=== PATIENT | female | born 1970 | race African-American/Black ===

== ENCOUNTER → 2017-12-07 12:34 | Outpatient (POV) | payer MEDICARE, MEDICAID, SELFPAY ==
[2017-12-07 13:04] VITALS: BP 142/97; PULSE 93; RESP 20; O2SAT 95; BMI 38.7
--- NOTE | 2017-12-07 13:48 | HMH.PAINSOAP ---
[facility] Pain Management SOAP Note Subjective:: Patient is a pleasant 47-year-old female who we have been treating for chronic low back pain secondary to degenerative disc disease of the lumbar spine and lumbar radiculopathy. Patient has majority of her pain in her low back and her left hip and leg. Patient describes her pain is constant, dull, aching. Patient states that her left hip pain can radiate down into her knee and past. Patient has no real interested in injective therapy at this time. Patient has been to multiple surgeons and is determined not to be a candidate for surgery. Patient is currently being managed on Percocet 10 mg 1 p.o. 4 times daily. Patient has tried gabapentin in the past however she had side effects to it. Patients current medication regimen decreases her pain 60-70%. Patient Nicko #[id number] reviewed and appropriate. Patient's drug screen appropriate in the past. She is currently still looking into surgical options. ROS General: no recent weight change, no fever, no sleep disturbances Respiratory: no cough, no shortness of air, no recurring pulmonary infections Cardiovascular/Peripheral Vascular: No chest pain, No palpitations, no edema, no shortness of breath. Gastrointestinal: no incontinence, normal bowel movements reported Genitourinary: no incontinence Musculoskeletal: Back pain, left hip and leg leg pain. Psychiatric: normal mood/ affect, Neurological: [denies weakness in extremities], [denies balance issues] Objective:: Physical Exam General: Alert and oriented x3, no acute distress, pleasant and cooperative, [on room air] Lungs: Resps E/U, Symmetrical chest expansion, Eyes: PERRL Musculoskeletal: Flexion and extension of lumbar spine somewhat guarded secondary to pain, deep tendon reflexes normal, strength in upper and lower extremities [5/5], [abnormal gait noted] Neurological: speech clear, physical chemist equal, no gross sensory deficits Assessment:: Degenerative disc disease of the lumbar spine, lumbar radiculopathy, left hip pain, fibromyalgia Plan:: We will plan on refilling this patient's medication Percocet 10 mg 1 p.o. 4 times daily. We will give her 2 prescriptions. Both her Nicko and urine drug screen have been reviewed. Dr. Morales has reviewed this chart and agrees with this plan of care. Patient has had side effects to her gabapentin. I will try to get Lyrica 75 mg 1 p.o. twice daily approved for her. I believe that this would be very advantageous for her because of her fibromyalgia symptoms. Patient has tried and failed gabapentin, amitriptyline, Cymbalta. Patient has tried and failed physical therapy along with massage therapy. Patient has been prescribed a controlled substance after being counseled on the medication, medication safety, and possible side effects. NICKO report has been obtained and reviewed prior to prescription and found to be appropriate. Opioid contract was reviewed and signed by the patient, and that they have agreed to all of the terms set forth by our compliance program. This note was dictated using voice recognition software may contain errors or omissions
--- NOTE | 2017-12-07 13:53 | P.CONS_ITS ---
[facility] Pain Management SOAP Note Subjective:: Patient is a pleasant 47-year-old female who we have been treating for chronic low back pain secondary to degenerative disc disease of the lumbar spine and lumbar radiculopathy. Patient has majority of her pain in her low back and her left hip and leg. Patient describes her pain is constant, dull, aching. Patient states that her left hip pain can radiate down into her knee and past. Patient has no real interested in injective therapy at this time. Patient has been to multiple surgeons and is determined not to be a candidate for surgery. Patient is currently being managed on Percocet 10 mg 1 p.o. 4 times daily. Patient has tried gabapentin in the past however she had side effects to it. Patients current medication regimen decreases her pain 60-70%. Patient Nicko # [phone] reviewed and appropriate. Patient's drug screen appropriate in the past. She is currently still looking into surgical options. ROS General: no recent weight change, no fever, no sleep disturbances Respiratory: no cough, no shortness of air, no recurring pulmonary infections Cardiovascular/Peripheral Vascular: No chest pain, No palpitations, no edema, no shortness of breath. Gastrointestinal: no incontinence, normal bowel movements reported Genitourinary: no incontinence Musculoskeletal: Back pain, left hip and leg leg pain. Psychiatric: normal mood/ affect, Neurological: [denies weakness in extremities], [denies balance issues] Objective:: Physical Exam General: Alert and oriented x3, no acute distress, pleasant and cooperative, [ on room air] Lungs: Resps E/U, Symmetrical chest expansion, Eyes: PERRL Musculoskeletal: Flexion and extension of lumbar spine somewhat guarded secondary to pain, deep tendon reflexes normal, strength in upper and lower extremities [5/5], [abnormal gait noted] Neurological: speech clear, machine finisher equal, no gross sensory deficits Assessment:: Degenerative disc disease of the lumbar spine, lumbar radiculopathy, left hip pain, fibromyalgia Plan:: We will plan on refilling this patient's medication Percocet 10 mg 1 p.o. 4 times daily. We will give her 2 prescriptions. Both her Nicko and urine drug screen have been reviewed. Dr. Morales has reviewed this chart and agrees with this plan of care. Patient has had side effects to her gabapentin. I will try to get Lyrica 75 mg 1 p.o. twice daily approved for her. I believe that this would be very advantageous for her because of her fibromyalgia symptoms. Patient has tried and failed gabapentin, amitriptyline, Cymbalta. Patient has tried and failed physical therapy along with massage therapy. Patient has been prescribed a controlled substance after being counseled on the medication, medication safety, and possible side effects. NICKO report has been obtained and reviewed prior to prescription and found to be appropriate. Opioid contract was reviewed and signed by the patient, and that they have agreed to all of the terms set forth by our compliance program. This note was dictated using voice recognition software may contain errors or omissions
[2017-12-07 15:09] LABS: Amphetamine/Metha Screen,Urine Negative ng/mL (<1000); Barbiturates Screen,Urine Negative ng/mL (<200); Benzodiazepines Screen,Urine Negative ng/mL (200); Cannabinoid Screen,Urine Negative ng/mL (<50); Cocaine Screen,Urine Negative ng/g (<300); Methadone Screen,Urine Negative ng/mL (<300); Opiate Screen,Urine Positive ng/mL (<300); Phencyclidine Screen,Urine Negative ng/mL (<25)
--- NOTE | 2017-12-07 16:52 | PC.PHONENOTE ---
called in RX for Lyrica 75mg BID with 2 refills to [facility] in [place]
[2017-12-11 20:12] LABS: Oxycodone (GC/MS) 1560 ng/mL (Cutoff=100)
[2017-12-12 18:33] LABS: Opiates Negative (Cutoff=100); Oxymorphone (GC/MS) 1470 ng/mL (Cutoff=100)
== END ==
PROVIDERS: Family Provider Nurse Practitioner; PCP Nurse Practitioner; Visit Provider Clinical Nurse Specialist Family Health
DX: M54.16 Radiculopathy, lumbar region (principal); Z79.899 Other long term (current) drug therapy
CPT/HCPCS: 99212; 80305; 80361; 80365; G0480

== ENCOUNTER → 2018-03-08 12:35 | Outpatient (POV) | payer MEDICARE, MEDICAID, SELFPAY ==
[2018-03-08 13:11] VITALS: BP 151/100; PULSE 78; RESP 18; O2SAT 98; BMI 41.1
--- NOTE | 2018-03-08 15:28 | HMH.PAINSOAP ---
[facility] Pain Management SOAP Note Subjective:: Patient is a pleasant 48-year-old white female who we are treating for chronic low back pain secondary to degenerative disc disease of the lumbar spine and lumbar radiculopathy. Patient states the majority of her pain is in her low back and her left hip and leg. Patient states that her pain is constant and aching. Patient has been on Lyrica however she does not like the way it makes her feel. Patient will be discontinuing Lyrica. Patient's tried and failed gabapentin and amitriptyline and Cymbalta. Patient is currently being medically managed on Percocet 10 mg 1 p.o. 4 times daily. Patient is asking for an increase in medication today. I discussed with her that she was on the highest dose we would put her on. Patient states it does decrease her pain up to 70%. Patient Kaspar #[id number] reviewed. Patient is interested in also getting a Lidoderm patch. Patient's UDS has been appropriate in the past. Patient and I discussed neuromodulation such as nerve stimulation and intrathecal pain pump. Patient has some concerns about that because she has a fear of injections. ROS General: no recent weight change, no fever, no sleep disturbances Respiratory: no cough, no shortness of air, no recurring pulmonary infections Cardiovascular/Peripheral Vascular: No chest pain, No palpitations, no edema, no shortness of breath. Gastrointestinal: no incontinence, normal bowel movements reported Genitourinary: no incontinence Musculoskeletal: Back pain, left hip pain, left leg pain Psychiatric: normal mood/ affect Neurological: [denies weakness in extremities], [denies balance issues] Objective:: Physical Exam General: Alert and oriented x3, no acute distress, pleasant and cooperative, [on room air] Lungs: Resps E/U, Symmetrical chest expansion, Eyes: PERRL Musculoskeletal: Flexion and extension of lumbar spine somewhat guarded secondary to pain, deep tendon reflexes normal, strength in upper and lower extremities [5/5], [abnormal gait noted] Neurological: speech clear, certified financial planner equal, no gross sensory deficits Assessment:: Degenerative disc disease of the lumbar spine with lumbar radiculopathy, left hip pain, fibromyalgia Plan:: We will refill the patient's medication Percocet 10 mg 1 p.o. 4 times daily. We will give HER-2 months worth of prescriptions and follow-up with her in 2 months. Both her Nicko and urine drug screens have been reviewed. Dr. Morales has reviewed this chart. Patient will discontinue her Lyrica. Patient was given information on neuromodulation both neuro stimulation and intrathecal pain therapy. Patient and I had a brief discussion about this and we will readdress it when she returns in 2 months. Patient has been prescribed a controlled substance after being counseled on the medication, medication safety, and possible side effects. NICKO report has been obtained and reviewed prior to prescription and found to be appropriate. Opioid contract was reviewed and signed by the patient, and that they have agreed to all of the terms set forth by our compliance program. This note was dictated using voice recognition software and may contain errors or omissions
--- NOTE | 2018-03-08 15:32 | P.CONS_ITS ---
[facility] Pain Management SOAP Note Subjective:: Patient is a pleasant 48-year-old white female who we are treating for chronic low back pain secondary to degenerative disc disease of the lumbar spine and lumbar radiculopathy. Patient states the majority of her pain is in her low back and her left hip and leg. Patient states that her pain is constant and aching. Patient has been on Lyrica however she does not like the way it makes her feel. Patient will be discontinuing Lyrica. Patient's tried and failed gabapentin and amitriptyline and Cymbalta. Patient is currently being medically managed on Percocet 10 mg 1 p.o. 4 times daily. Patient is asking for an increase in medication today. I discussed with her that she was on the highest dose we would put her on. Patient states it does decrease her pain up to 70%. Patient Kaspar #[id number] reviewed. Patient is interested in also getting a Lidoderm patch. Patient's UDS has been appropriate in the past. Patient and I discussed neuromodulation such as nerve stimulation and intrathecal pain pump. Patient has some concerns about that because she has a fear of injections. ROS General: no recent weight change, no fever, no sleep disturbances Respiratory: no cough, no shortness of air, no recurring pulmonary infections Cardiovascular/Peripheral Vascular: No chest pain, No palpitations, no edema, no shortness of breath. Gastrointestinal: no incontinence, normal bowel movements reported Genitourinary: no incontinence Musculoskeletal: Back pain, left hip pain, left leg pain Psychiatric: normal mood/ affect Neurological: [denies weakness in extremities], [denies balance issues] Objective:: Physical Exam General: Alert and oriented x3, no acute distress, pleasant and cooperative, [ on room air] Lungs: Resps E/U, Symmetrical chest expansion, Eyes: PERRL Musculoskeletal: Flexion and extension of lumbar spine somewhat guarded secondary to pain, deep tendon reflexes normal, strength in upper and lower extremities [5/5], [abnormal gait noted] Neurological: speech clear, infrastructure software engineer equal, no gross sensory deficits Assessment:: Degenerative disc disease of the lumbar spine with lumbar radiculopathy, left hip pain, fibromyalgia Plan:: We will refill the patient's medication Percocet 10 mg 1 p.o. 4 times daily. We will give HER-2 months worth of prescriptions and follow-up with her in 2 months. Both her Nicko and urine drug screens have been reviewed. Dr. Morales has reviewed this chart. Patient will discontinue her Lyrica. Patient was given information on neuromodulation both neuro stimulation and intrathecal pain therapy. Patient and I had a brief discussion about this and we will readdress it when she returns in 2 months. Patient has been prescribed a controlled substance after being counseled on the medication, medication safety, and possible side effects. NICKO report has been obtained and reviewed prior to prescription and found to be appropriate. Opioid contract was reviewed and signed by the patient, and that they have agreed to all of the terms set forth by our compliance program. This note was dictated using voice recognition software and may contain errors or omissions
== END ==
PROVIDERS: Family Provider Nurse Practitioner; PCP Nurse Practitioner; Visit Provider Clinical Nurse Specialist Family Health
DX: M79.7 Fibromyalgia (principal); M54.16 Radiculopathy, lumbar region
CPT/HCPCS: 99212

== ENCOUNTER → 2018-05-10 12:40 | Outpatient (POV) | payer MEDICARE, MEDICAID, SELFPAY ==
[2018-05-10 13:32] LABS: Amphetamine/Metha Screen,Urine Negative ng/mL (<1000); Barbiturates Screen,Urine Negative ng/mL (<200); Benzodiazepines Screen,Urine Negative ng/mL (<200); Cannabinoid Screen,Urine Negative ng/mL (<50); Cocaine Screen,Urine Negative ng/mL (<300); Methadone Screen,Urine Negative ng/mL (<300); Opiate Screen,Urine Positive ng/mL (<300); Phencyclidine Screen,Urine Negative ng/mL (<25)
[2018-05-10 13:41] VITALS: BP 154/88; PULSE 88; RESP 18; O2SAT 98; BMI 44.4
--- NOTE | 2018-05-10 16:05 | HMH.PAINSOAP ---
[facility] Pain Management SOAP Note Subjective:: Patient is a pleasant 48-year-old white female who presents today for follow-up. Patient is being treated for chronic low back pain secondary to degenerative disc disease lumbar spine or radiculopathy. Patient states that most of her pain is in her low back today. Patient states her pain is constant and aching. Patient has been taken off her Lyrica due to the way that it makes her feel. Patient is currently being medically managed on Percocet 10 mg 1 p.o. 4 times a day. Patient's NICKO #[id number] reviewed and appropriate. Patient's UDS has been appropriate in the past. At her last visit we taught discussed neuro stimulation or an intrathecal pain pump. Patient is terrified of these therapies. Patient states she does not believe that they will help. Patient has a fear in regards to injection she states. ROS General: no recent weight change, no fever, no sleep disturbances Respiratory: no cough, no shortness of air, no recurring pulmonary infections Cardiovascular/Peripheral Vascular: No chest pain, No palpitations, no edema, no shortness of breath. Gastrointestinal: no incontinence, normal bowel movements reported Genitourinary: no incontinence Musculoskeletal: Back pain Psychiatric: normal mood/ affect Neurological: [denies weakness in extremities], [denies balance issues] Objective:: Physical Exam General: Alert and oriented x3, no acute distress, pleasant and cooperative, [on room air] Lungs: Resps E/U, Symmetrical chest expansion, Eyes: PERRL Musculoskeletal: Flexion and extension of lumbar spine somewhat guarded secondary to pain, deep tendon reflexes normal, strength in upper and lower extremities [5/5], [abnormal gait noted] Neurological: speech clear, leather 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 4 times daily. We will give her 2 months worth of prescriptions. We will follow-up with her in 3 months. Both her Nicko and urine drug screen have been reviewed. Dr. Morales has reviewed this chart and agrees with this plan of care. Patient has been prescribed a controlled substance after being counseled on the medication, medication safety, and possible side effects. NICKO report has been obtained and reviewed prior to prescription and found to be appropriate. Opioid contract was reviewed and signed by the patient, and that they have agreed to all of the terms set forth by our compliance program. This note was dictated using voice recognition software and may contain errors or omissions
[2018-05-19 07:25] LABS: Oxycodone (GC/MS) >3000 ng/mL (Cutoff=100)
[2018-05-19 08:11] LABS: Opiates Negative (Cutoff=100); Oxymorphone (GC/MS) >3000 ng/mL (Cutoff=100)
== END ==
PROVIDERS: Family Provider Nurse Practitioner; PCP Nurse Practitioner; Visit Provider Clinical Nurse Specialist Family Health
DX: M54.16 Radiculopathy, lumbar region (principal); Z79.899 Other long term (current) drug therapy
CPT/HCPCS: 80305; 80361; 80365; 99212; G0480

== ENCOUNTER → 2018-08-09 09:20 | Outpatient (POV) | payer MEDICARE, MEDICAID, SELFPAY ==
--- NOTE | 2018-08-09 09:51 | HMH.PAINSOAP ---
[facility] Pain Management SOAP Note Subjective:: Patient is a pleasant 48-year-old female who presents today for follow-up. Patient is being for chronic low back pain secondary to degenerative disc disease lumbar spine with lumbar radiculopathy. Patient states that her pain today is about a 6 out of 10. Patient is currently being medically managed on Percocet 10 mg 1 p.o. 4 times daily. Have NICKO #[id number] reviewed and appropriate. Patient's urine drug screen has been appropriate in the past. Patient is asking about Elavil. We will try this at nighttime. Patient is terrified of procedures . Patient denies side effects to her medication. ROS General: no recent weight change, no fever, no sleep disturbances Respiratory: no cough, no shortness of air, no recurring pulmonary infections Cardiovascular/Peripheral Vascular: No chest pain, No palpitations, no edema, no shortness of breath. Gastrointestinal: no incontinence, normal bowel movements reported Genitourinary: no incontinence Musculoskeletal: Back pain, leg pain Psychiatric: normal mood/ affect Neurological: [denies weakness in extremities], [denies balance issues] Objective:: Physical Exam General: Alert and oriented x3, no acute distress, pleasant and cooperative, [on room air] Lungs: Resps E/U, Symmetrical chest expansion, Eyes: PERRL Musculoskeletal: Flexion and extension of lumbar spine somewhat guarded secondary to pain, deep tendon reflexes normal, strength in upper and lower extremities [5/5], antalgic gait noted Neurological: speech clear, banquet lead equal, no gross sensory deficits Assessment:: Degenerative disc disease lumbar spine with lumbar radiculopathy, fibromyalgia Plan:: We will refill her Percocet 10 mg 1 p.o. 4 times daily. We will also call in Elavil 25 mg at nighttime for the patient. We will give her 2 months worth of prescriptions and we will follow-up with her in 3 months. 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 Nicko and urine drug screen have been reviewed. Dr. Morales has reviewed this chart and agrees with this plan of care. Patient has been prescribed a controlled substance after being counseled on the medication, medication safety, and possible side effects. NICKO report has been obtained and reviewed prior to prescription and found to be appropriate. Opioid contract was reviewed and signed by the patient, and that they have agreed to all of the terms set forth by our compliance program. This note was dictated using voice recognition software and may contain errors or omissions
--- NOTE | 2018-08-09 09:54 | P.CONS_ITS ---
[facility] Pain Management SOAP Note Subjective:: Patient is a pleasant 48-year-old female who presents today for follow-up. Patient is being for chronic low back pain secondary to degenerative disc disease lumbar spine with lumbar radiculopathy. Patient states that her pain today is about a 6 out of 10. Patient is currently being medically managed on Percocet 10 mg 1 p.o. 4 times daily. Have NICKO #[id number] reviewed and appropriate. Patient's urine drug screen has been appropriate in the past. Patient is asking about Elavil. We will try this at nighttime. Patient is terrified of procedures . Patient denies side effects to her medication. ROS General: no recent weight change, no fever, no sleep disturbances Respiratory: no cough, no shortness of air, no recurring pulmonary infections Cardiovascular/Peripheral Vascular: No chest pain, No palpitations, no edema, no shortness of breath. Gastrointestinal: no incontinence, normal bowel movements reported Genitourinary: no incontinence Musculoskeletal: Back pain, leg pain Psychiatric: normal mood/ affect Neurological: [denies weakness in extremities], [denies balance issues] Objective:: Physical Exam General: Alert and oriented x3, no acute distress, pleasant and cooperative, [on room air] Lungs: Resps E/U, Symmetrical chest expansion, Eyes: PERRL Musculoskeletal: Flexion and extension of lumbar spine somewhat guarded secondary to pain, deep tendon reflexes normal, strength in upper and lower extremities [5/5], antalgic gait noted Neurological: speech clear, math interventionist equal, no gross sensory deficits Assessment:: Degenerative disc disease lumbar spine with lumbar radiculopathy, fibromyalgia Plan:: We will refill her Percocet 10 mg 1 p.o. 4 times daily. We will also call in Elavil 25 mg at nighttime for the patient. We will give her 2 months worth of prescriptions and we will follow-up with her in 3 months. 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 Nicko and urine drug screen have been reviewed. Dr. Morales has reviewed this chart and agrees with this plan of care. Patient has been prescribed a controlled substance after being counseled on the medication, medication safety, and possible side effects. NICKO report has been obtained and reviewed prior to prescription and found to be appropriate. Opioid contract was reviewed and signed by the patient, and that they have agreed to all of the terms set forth by our compliance program. This note was dictated using voice recognition software and may contain errors or omissions
[2018-08-09 10:02] VITALS: BP 143/83; PULSE 89; RESP 18; O2SAT 98; BMI 40.3
== END ==
PROVIDERS: PCP Nurse Practitioner; Visit Provider Clinical Nurse Specialist Family Health
DX: M51.16 Intervertebral disc disorders with radiculopathy, lumbar region (principal); M79.7 Fibromyalgia
CPT/HCPCS: 99213

== ENCOUNTER → 2018-10-07 13:15 | Outpatient (CLI) | payer MEDICARE, MEDICAID, SELFPAY ==
[2018-10-07 13:58] LABS: Amphetamine/Metha Screen,Urine Negative ng/mL (<1000); Barbiturates Screen,Urine Negative ng/mL (<200); Benzodiazepines Screen,Urine Negative ng/mL (<200); Cannabinoid Screen,Urine Positive ng/mL (<50); Cocaine Screen,Urine Negative ng/mL (<300); Methadone Screen,Urine Negative ng/mL (<300); Opiate Screen,Urine Positive ng/mL (<300); Phencyclidine Screen,Urine Negative ng/mL (<25)
[2018-10-12 08:24] LABS: Oxycodone (GC/MS) >3000 ng/mL (Cutoff=100)
[2018-10-12 13:59] LABS: Opiates Negative (Cutoff=100); Oxymorphone (GC/MS) >100 ng/mL (Cutoff=100)
== END ==
PROVIDERS: Visit Provider Clinical Nurse Specialist Family Health
DX: Z79.899 Other long term (current) drug therapy (principal)
CPT/HCPCS: 80305; 80361; 80365; G0480

== ENCOUNTER → 2018-11-01 12:43 | Outpatient (POV) | payer MEDICARE, MEDICAID, SELFPAY ==
[2018-11-01 12:54] VITALS: BP 140/89; PULSE 84; RESP 18; O2SAT 99; BMI 39.5
--- NOTE | 2018-11-01 13:05 | HMH.PAINSOAP ---
[facility] Pain Management SOAP Note Subjective:: Patient is a pleasant 48-year-old white female who presents for follow-up. Patient being treated for pain secondary to degenerative disease lumbar with lumbar radiculopathy and fibromyalgia. She rates her pain a 9 out of 10 today. She states is much worse in the cold weather. She is on Percocet 10 mg p.o. 4 times daily. Patient's NICKO reviewed and appropriate. Patient tried Elavil however it was not effective for her. Patient states she is terrified procedures and . She denies side effects or medication. ROS General: no recent weight change, no fever, no sleep disturbances Respiratory: no cough, no shortness of air, no recurring pulmonary infections Cardiovascular/Peripheral Vascular: No chest pain, No palpitations, no edema, no shortness of breath. Gastrointestinal: no incontinence, normal bowel movements reported Genitourinary: no incontinence Musculoskeletal: Back pain, leg pain Psychiatric: normal mood/ affect Neurological: [denies weakness in extremities], [denies balance issues] Objective:: Physical Exam General: Alert and oriented x3, no acute distress, pleasant and cooperative, [on room air] Lungs: Resps E/U, Symmetrical chest expansion, Eyes: PERRL Musculoskeletal: Flexion and extension of lumbar spine somewhat guarded secondary to pain, deep tendon reflexes normal, strength in upper and lower extremities [5/5], [abnormal gait noted] Neurological: speech clear, patient resource coordinator equal, no gross sensory deficits Assessment:: 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 4 times daily. We will give her 1 month and reassess her symptoms in 1 month. We will also start her on Savella 25 g 1 p.o. twice daily for 1 month patient has been instructed to call the office she has any issues prior to her next appointment. Patient has been prescribed a controlled substance after being counseled on the medication, medication safety, and possible side effects. NICKO report has been obtained and reviewed prior to prescription and found to be appropriate. Opioid contract was reviewed and signed by the patient, and that they have agreed to all of the terms set forth by our compliance program. Dr. Morales has reviewed this note and agrees with this plan of care. This note was dictated using voice recognition software and may contain errors or omissions
== END ==
PROVIDERS: PCP Nurse Practitioner; Visit Provider Clinical Nurse Specialist Family Health
DX: M51.16 Intervertebral disc disorders with radiculopathy, lumbar region (principal); M79.7 Fibromyalgia
CPT/HCPCS: 99213

== ENCOUNTER → 2018-11-16 09:55 | Outpatient (POV) | payer MEDICARE, MEDICAID, SELFPAY ==
[2018-11-16 10:55] VITALS: BP 129/83; PULSE 100; RESP 18; O2SAT 98; BMI 39.5
--- NOTE | 2018-11-16 11:15 | HMH.PAINSOAP ---
[facility] Pain Management SOAP Note Subjective:: Patient is a pleasant 48-year-old female who presents today for follow-up. Patient at her last visit was changed from Percocet to oxycodone. She states that the Percocet worked much better for her. She would like to be switched back she rates her pain an 8 out of 10. Nicko reviewed and appropriate. Patient and I discussed her taking her medications back to be counted prior to filling her new medication. She can continue on the Savella and we will also order a compounding cream for her. ROS General: no recent weight change, no fever, no sleep disturbances Respiratory: no cough, no shortness of air, no recurring pulmonary infections Cardiovascular/Peripheral Vascular: No chest pain, No palpitations, no edema, no shortness of breath. Gastrointestinal: no incontinence, normal bowel movements reported Genitourinary: no incontinence Musculoskeletal: Back pain, leg pain Psychiatric: normal mood/ affect Neurological: [denies weakness in extremities], [denies balance issues] Objective:: Physical Exam General: Alert and oriented x3, no acute distress, pleasant and cooperative, [on room air] Lungs: Resps E/U, Symmetrical chest expansion, Eyes: PERRL Musculoskeletal: Flexion and extension of lumbar spine somewhat guarded secondary to pain, deep tendon reflexes normal, strength in upper and lower extremities [5/5], slightly antalgic gait noted Neurological: speech clear, pyrometer operator equal, no gross sensory deficits Assessment:: Degenerative disc disease lumbar spine with lumbar radiculopathy and fibromyalgia Plan:: We will send the patient for a pill count on her leftover oxycodone and change her to Percocet 10 mg 1 p.o. 4 times daily once we get the results of this. We will continue her on her Savella and order her some compounding cream. I will follow-up with her in 2 months and reassess her symptoms at the time she has been instructed to call the office if she has any issues prior to next appointment Patient has been prescribed a controlled substance after being counseled on the medication, medication safety, and possible side effects. NICKO report has been obtained and reviewed prior to prescription and found to be appropriate. Opioid contract was reviewed and signed by the patient, and that they have agreed to all of the terms set forth by our compliance program. Dr. Morales has reviewed this note and agrees with this plan of care. This note was dictated using voice recognition software and may contain errors or omissions
== END ==
PROVIDERS: PCP Nurse Practitioner; Visit Provider Clinical Nurse Specialist Family Health
DX: M51.16 Intervertebral disc disorders with radiculopathy, lumbar region (principal); M79.7 Fibromyalgia
CPT/HCPCS: 99213

== ENCOUNTER → 2019-01-31 13:32 | Outpatient (POV) | payer MEDICARE, MEDICAID, SELFPAY ==
[2019-01-31 13:54] VITALS: BP 133/88; PULSE 86; RESP 18; O2SAT 98; BMI 40.3
--- NOTE | 2019-02-01 08:40 | HMH.PAINSOAP ---
[facility] Pain Management SOAP Note Subjective:: Patient is a pleasant 48-year-old female who presents today for follow-up and medication refills. Patient currently on Percocet 10 mg 1 p.o. 4 times daily. Patient has stopped taking her to savella stating that it does not help. Patient is being treated for pain secondary to degenerative disc disease lumbar spine with lumbar radiculopathy and fibromyalgia. ROS General: no recent weight change, no fever, no sleep disturbances Respiratory: no cough, no shortness of air, no recurring pulmonary infections Cardiovascular/Peripheral Vascular: No chest pain, No palpitations, no edema, no shortness of breath. Gastrointestinal: no incontinence, normal bowel movements reported Genitourinary: no incontinence Musculoskeletal: Back pain, leg pain Psychiatric: normal mood/ affect Neurological: [denies weakness in extremities], [denies balance issues] Objective:: Physical Exam General: Alert and oriented x3, no acute distress, pleasant and cooperative, [on room air] Lungs: Resps E/U, Symmetrical chest expansion, Eyes: PERRL Musculoskeletal: Flexion and extension of lumbar spine somewhat guarded secondary to pain, deep tendon reflexes normal, strength in upper and lower extremities 5/5 slightly antalgic gait noted Neurological: speech clear, program instructor equal, no gross sensory deficits Assessment:: Degenerative disc disease lumbar spine with lumbar radiculopathy and fibromyalgia Plan:: We will refill the patient's Percocet 10 mg 1 p.o. 4 times daily. 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 We will follow-up with her in 3 months and reassess her symptoms at that time. She is been instructed to call the office if she has any issues prior to her next appointment. Dr. Morales has reviewed this note and agrees with this plan of care. This note was dictated using voice recognition software and may contain errors or omissions
--- NOTE | 2019-02-01 08:52 | P.CONS_ITS ---
[facility] Pain Management SOAP Note Subjective:: Patient is a pleasant 48-year-old female who presents today for follow-up and medication refills. Patient currently on Percocet 10 mg 1 p.o. 4 times daily. Patient has stopped taking her to savella stating that it does not help. Patient is being treated for pain secondary to degenerative disc disease lumbar spine with lumbar radiculopathy and fibromyalgia. ROS General: no recent weight change, no fever, no sleep disturbances Respiratory: no cough, no shortness of air, no recurring pulmonary infections Cardiovascular/Peripheral Vascular: No chest pain, No palpitations, no edema, no shortness of breath. Gastrointestinal: no incontinence, normal bowel movements reported Genitourinary: no incontinence Musculoskeletal: Back pain, leg pain Psychiatric: normal mood/ affect Neurological: [denies weakness in extremities], [denies balance issues] Objective:: Physical Exam General: Alert and oriented x3, no acute distress, pleasant and cooperative, [on room air] Lungs: Resps E/U, Symmetrical chest expansion, Eyes: PERRL Musculoskeletal: Flexion and extension of lumbar spine somewhat guarded secondary to pain, deep tendon reflexes normal, strength in upper and lower extremities 5/5 slightly antalgic gait noted Neurological: speech clear, driver salesman equal, no gross sensory deficits Assessment:: Degenerative disc disease lumbar spine with lumbar radiculopathy and fibromyalgia Plan:: We will refill the patient's Percocet 10 mg 1 p.o. 4 times daily. 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 We will follow-up with her in 3 months and reassess her symptoms at that time. She is been instructed to call the office if she has any issues prior to her next appointment. Dr. Morales has reviewed this note and agrees with this plan of care. This note was dictated using voice recognition software and may contain errors or omissions
== END ==
PROVIDERS: PCP Nurse Practitioner; Visit Provider Clinical Nurse Specialist Family Health
DX: M51.16 Intervertebral disc disorders with radiculopathy, lumbar region (principal); M79.18 Myalgia, other site
CPT/HCPCS: 99212

== ENCOUNTER → 2019-04-04 15:08 | Outpatient (POV) | payer MEDICARE, MEDICAID, SELFPAY ==
[2019-04-04 15:18] VITALS: BP 129/84; PULSE 89; RESP 18; O2SAT 98; BMI 40.3
--- NOTE | 2019-04-04 15:40 | HMH.PAINSOAP ---
[facility] Pain Management SOAP Note Subjective:: Patient is a 48-year-old female who presents today for follow-up for medication refills. She is currently on Percocet 10 mg p.o. times daily. She denies any side effects or medications. Nicko #[id number] has been reviewed and is appropriate. Patient complains of low back pain, along with bilateral lower extremity pain and neck pain. Says that she has tried multiple different modalities including oral medication management, along with physical therapy. She is inquiring about the cord stimulators and intrathecal pain pumps today. She is also continuing anti-inflammatories. Review of Systems General: No recent weight changes, no fever, no sleep disturbances Respiratory: No cough, no shortness of air, no recurring pulmonary infections Cardiovascular/peripheral vascular: No chest pain, no palpitations, no edema, no shortness of breath Gastrointestinal: No new onset incontinence, normal bowel movements reported Genitourinary: No new onset incontinence Musculoskeletal: Back pain, bilateral leg pain, neck pain Psychiatric: Normal mood/affect Neurological: [Denies weakness in extremities], [denies balance issues] Objective:: Physical exam General: Alert and oriented x3, no acute distress, pleasant and cooperative, [on room air] Lungs: Respirations even and unlabored, symmetrical chest expansion Eyes: PERRL Musculoskeletal: Flexion and extension of lumbar spine somewhat guarded secondary to pain, deep tendon reflexes normal, strength in upper and lower extremities [5/5], [abnormal gait noted] Neurological: Speech clear, pipe turner equal, no gross sensory deficit Assessment:: Degenerative disc disease lumbar spine with lumbar radiculopathy and fibromyalgia Plan:: We will refill the patient's Percocet 10 mg 1 p.o. 4 times daily and give HER-2 months worth of prescriptions. 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 We did have a thorough discussion concerning spinal cord stimulators and intrathecal pain pumps. She is not interested in either modality at this time. She is been instructed to call the office if she has any concerns prior to her next appointment Patient has been prescribed a controlled substance after being counseled on the medication, medication safety, and possible side effects. NICKO report has been obtained and reviewed prior to prescription and found to be appropriate. Opioid contract was reviewed and signed by the patient, and that they have agreed to all of the terms set forth by our compliance program. Dr. Morales has reviewed this note and agrees with this plan of care. This note was dictated using voice recognition software and make contain errors or omissions.
--- NOTE | 2019-04-04 15:44 | P.CONS_ITS ---
[facility] Pain Management SOAP Note Subjective:: Patient is a 48-year-old female who presents today for follow-up for medication refills. She is currently on Percocet 10 mg p.o. times daily. She denies any side effects or medications. Nicko #[id number] has been reviewed and is appropriate. Patient complains of low back pain, along with bilateral lower extremity pain and neck pain. Says that she has tried multiple different modalities including oral medication management, along with physical therapy. She is inquiring about the cord stimulators and intrathecal pain pumps today. She is also continuing anti-inflammatories. Review of Systems General: No recent weight changes, no fever, no sleep disturbances Respiratory: No cough, no shortness of air, no recurring pulmonary infections Cardiovascular/peripheral vascular: No chest pain, no palpitations, no edema, no shortness of breath Gastrointestinal: No new onset incontinence, normal bowel movements reported Genitourinary: No new onset incontinence Musculoskeletal: Back pain, bilateral leg pain, neck pain Psychiatric: Normal mood/affect Neurological: [Denies weakness in extremities], [denies balance issues] Objective:: Physical exam General: Alert and oriented x3, no acute distress, pleasant and cooperative, [on room air] Lungs: Respirations even and unlabored, symmetrical chest expansion Eyes: PERRL Musculoskeletal: Flexion and extension of lumbar spine somewhat guarded secondary to pain, deep tendon reflexes normal, strength in upper and lower extremities [5/5], [abnormal gait noted] Neurological: Speech clear, digital learning platforms manager equal, no gross sensory deficit Assessment:: Degenerative disc disease lumbar spine with lumbar radiculopathy and fibromyalgia Plan:: We will refill the patient's Percocet 10 mg 1 p.o. 4 times daily and give HER-2 months worth of prescriptions. She can order picker/assembler her third month prescription in the interim. We did have a thorough discussion concerning spinal cord stimulators and intrathecal pain pumps. She is not interested in either modality at this time. She is been instructed to call the office if she has any concerns prior to her next appointment Patient has been prescribed a controlled substance after being counseled on the medication, medication safety, and possible side effects. NICKO report has been obtained and reviewed prior to prescription and found to be appropriate. Opioid contract was reviewed and signed by the patient, and that they have agreed to all of the terms set forth by our compliance program. Dr. Morales has reviewed this note and agrees with this plan of care. This note was dictated using voice recognition software and make contain errors or omissions.
[2019-04-04 17:35] LABS: Amphetamine/Metha Screen,Urine Negative ng/mL (<1000); Barbiturates Screen,Urine Negative ng/mL (<200); Benzodiazepines Screen,Urine Negative ng/mL (<200); Cannabinoid Screen,Urine Negative ng/mL (<50); Cocaine Screen,Urine Negative ng/mL (<300); Methadone Screen,Urine Negative ng/mL (<300); Opiate Screen,Urine Positive ng/mL (<300); Phencyclidine Screen,Urine Negative ng/mL (<25)
[2019-04-10 12:09] LABS: Oxycodone (GC/MS) >3000 ng/mL (Cutoff=100)
[2019-04-10 17:09] LABS: Opiates Negative (Cutoff=100); Oxymorphone (GC/MS) >3000 ng/mL (Cutoff=100)
== END ==
PROVIDERS: PCP Nurse Practitioner; Visit Provider Clinical Nurse Specialist Family Health
DX: M51.16 Intervertebral disc disorders with radiculopathy, lumbar region (principal); M79.7 Fibromyalgia; Z79.899 Other long term (current) drug therapy
CPT/HCPCS: 80305; 80361; 80365; 99212; G0480

== ENCOUNTER → 2019-05-11 13:38 | Outpatient (CLI) | payer MEDICARE, MEDICAID, SELFPAY ==
--- NOTE | 2019-05-11 13:44 | MR_ITS ---
MR head/brain wo con HISTORY: Recurrent severe headache, frontal headache, eye soreness, dizziness ITS.REASON: PAIN RT EYE ORDERING PHYSICIAN: Zeynep Hutton APRN PATIENT AGE: 49 years Comparison: None TECHNIQUE: Standard multiplanar multiecho sequences are performed without contrast. FINDINGS: No midline shift, mass effect, intracranial hemorrhage, or hydrocephalus is evident. The cerebellopontine angles, cerebellum, and brainstem are unremarkable. There is normal hanna-white matter differentiation. The pituitary, optic chiasm, corpus callosum, and craniocervical junction have an unremarkable appearance. No mastoid effusion or sinus air-fluid level. There are retention cysts in the lower aspect of the left maxillary sinus. IMPRESSION: Negative MR of the brain, no acute intracranial findings
== END ==
PROVIDERS: PCP Nurse Practitioner; Visit Provider Nurse Practitioner Family
DX: H57.11 Ocular pain, right eye (principal); R51 Headache
CPT/HCPCS: 70551

== ENCOUNTER → 2019-07-04 13:23 | Outpatient (POV) | payer MEDICARE, MEDICAID, SELFPAY ==
[2019-07-04 14:14] VITALS: BP 132/81; PULSE 91; RESP 18; O2SAT 98; BMI 42.7
[2019-07-04 15:24] LABS: Amphetamine/Metha Screen,Urine Negative ng/mL (<1000); Barbiturates Screen,Urine Negative ng/mL (<200); Benzodiazepines Screen,Urine Negative ng/mL (<200); Cannabinoid Screen,Urine Negative ng/mL (<50); Cocaine Screen,Urine Negative ng/mL (<300); Methadone Screen,Urine Negative ng/mL (<300); Opiate Screen,Urine Positive ng/mL (<300); Phencyclidine Screen,Urine Negative ng/mL (<25)
--- NOTE | 2019-07-05 08:53 | HMH.PAINSOAP ---
[facility] Pain Management SOAP Note Subjective:: Patient is a pleasant 48-year-old white female who presents today for medication refills. She is currently on Percocet 10 mg 1 p.o. 4 times daily. Patient denies any side effects. [facility] #[id number] reviewed and appropriate. Urine drug screens have been appropriate. Patient I had a long discussion in regards to neuro stimulation that she is potentially interested in this. I did give the patient information in regards to this. ROS General: no recent weight change, no fever, no sleep disturbances Respiratory: no cough, no shortness of air, no recurring pulmonary infections Cardiovascular/Peripheral Vascular: No chest pain, No palpitations, no edema, no shortness of breath. Gastrointestinal: no incontinence, normal bowel movements reported Genitourinary: no incontinence Musculoskeletal: Back pain, leg pain Psychiatric: normal mood/ affect Neurological: [denies weakness in extremities], [denies balance issues] Objective:: Physical Exam General: Alert and oriented x3, no acute distress, pleasant and cooperative, [on room air] Lungs: Resps E/U, Symmetrical chest expansion, Eyes: PERRL Musculoskeletal: Flexion and extension of lumbar spine somewhat guarded secondary to pain, deep tendon reflexes normal, strength in upper and lower extremities [5/5], [abnormal gait noted] Neurological: speech clear, metal loader equal, no gross sensory deficits Assessment:: Degenerative disc disease lumbar spine with lumbar radiculopathy and fibromyalgia Plan:: I will refill the patient's Percocet 10 mg 1 p.o. 4 times daily and give her 2 months with a prescription she can warp picker her third month in the interim. Patient's been instructed to call the office if she has any issues prior to her next appointment. I also discussed with the patient if she would like to move forward with a neurostimulator we will get a psychological evaluation scheduled for her. Dr. Morales has reviewed this note and agrees with this plan of care. This note was dictated using voice recognition software and may contain errors or omissions [facility] History I have reviewed the patient's past medical history: Yes *Have you ever received a pneumonia vaccine?: Yes *Have you received a flu vaccine this season?: Yes - *Social History *Occupational Status:: other *Travel in the last 8 weeks: None Family Hx:: Non-contributory
--- NOTE | 2019-07-05 08:56 | P.CONS_ITS ---
[facility] Pain Management SOAP Note Subjective:: Patient is a pleasant 48-year-old white female who presents today for medication refills. She is currently on Percocet 10 mg 1 p.o. 4 times daily. Patient denies any side effects. [facility] #[id number] reviewed and appropriate. Urine drug screens have been appropriate. Patient I had a long discussion in regards to neuro stimulation that she is potentially interested in this. I did give the patient information in regards to this. ROS General: no recent weight change, no fever, no sleep disturbances Respiratory: no cough, no shortness of air, no recurring pulmonary infections Cardiovascular/Peripheral Vascular: No chest pain, No palpitations, no edema, no shortness of breath. Gastrointestinal: no incontinence, normal bowel movements reported Genitourinary: no incontinence Musculoskeletal: Back pain, leg pain Psychiatric: normal mood/ affect Neurological: [denies weakness in extremities], [denies balance issues] Objective:: Physical Exam General: Alert and oriented x3, no acute distress, pleasant and cooperative, [on room air] Lungs: Resps E/U, Symmetrical chest expansion, Eyes: PERRL Musculoskeletal: Flexion and extension of lumbar spine somewhat guarded secondary to pain, deep tendon reflexes normal, strength in upper and lower extremities [5/5], [abnormal gait noted] Neurological: speech clear, display specialist equal, no gross sensory deficits Assessment:: Degenerative disc disease lumbar spine with lumbar radiculopathy and fibromyalgia Plan:: I will refill the patient's Percocet 10 mg 1 p.o. 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 Patient's been instructed to call the office if she has any issues prior to her next appointment. I also discussed with the patient if she would like to move forward with a neurostimulator we will get a psychological evaluation scheduled for her. Dr. Morales has reviewed this note and agrees with this plan of care. This note was dictated using voice recognition software and may contain errors or omissions [facility] History I have reviewed the patient's past medical history: Yes *Have you ever received a pneumonia vaccine?: Yes *Have you received a flu vaccine this season?: Yes - *Social History *Occupational Status:: other *Travel in the last 8 weeks: None Family Hx:: Non-contributory
[2019-07-10 19:09] LABS: Oxycodone (GC/MS) >3000 ng/mL (Cutoff=100)
[2019-07-11 01:23] LABS: Opiates Negative (Cutoff=100); Oxymorphone (GC/MS) >3000 ng/mL (Cutoff=100)
== END ==
PROVIDERS: PCP Nurse Practitioner Family; Visit Provider Clinical Nurse Specialist Family Health
DX: M51.16 Intervertebral disc disorders with radiculopathy, lumbar region (principal); M79.7 Fibromyalgia; Z79.899 Other long term (current) drug therapy
CPT/HCPCS: 80305; 80361; 80365; 99212; G0480

== ENCOUNTER → 2019-08-05 13:55 | Outpatient (CLI) | payer MEDICARE, MEDICAID, SELFPAY ==
--- NOTE | 2019-08-05 13:58 | MR_ITS ---
PROCEDURE: MR LUMBAR SPINE WO CON CLINICAL INDICATION: HEMANGIOMA OF OTHER SITES, PROTUSION OF LUMBAR INTERVERTEBRA Low back pain, bilateral leg pain, left leg pain COMPARISON: [facility] [place] MRI-L-SPINE W/WO from 05/08/2017 TECHNIQUE: Standard multiplanar multiecho sequences are performed without contrast. 3-D MIP and myelographic images are also rendered and reviewed FINDINGS: There is normal alignment. The spinal cord ends at the L1-L2 level. T11-T12: Unremarkable. T12-L1: Small Schmorl's node along the superior endplate of L1. The disc spaces well preserved. L1-L2: Mild degenerative disc disease. L2-L3: Unremarkable. L3-L4: Unremarkable. L4-5: Unremarkable. L5-S1: There is degenerative disc disease with bulging disc with a small left paracentral/foraminal disc herniation impinging upon the S1 nerve root and also abutting and mildly displacing the S2 nerve root. These findings are nicely demonstrated on the MRI. This is causing left lateral recess and foraminal narrowing. There are mild facet arthritic changes at this level as well with mild right and moderate left foraminal narrowing. Incidental note is made of a 2 cm right renal cyst. IMPRESSION: There is degenerative disc disease at L5-S1 with bulging disc with a small left paracentral/foraminal disc herniation impinging upon the S1 nerve root and also abutting and mildly displacing the S2 nerve root. These findings are nicely demonstrated on the MRI. This is causing left lateral recess and foraminal narrowing. There are mild facet arthritic changes at this level as well with mild right and moderate left foraminal narrowing. Dictated by: Mukul Waite MD 08/06/2019 10:50 Electronically signed by Mukul Waite MD in [place] 08/06/2019 10:50
== END ==
PROVIDERS: PCP Nurse Practitioner Family; Visit Provider Nurse Practitioner Family
DX: M51.26 Other intervertebral disc displacement, lumbar region (principal); D18.09 Hemangioma of other sites
CPT/HCPCS: 72148; 76376

== ENCOUNTER → 2019-08-09 13:37 | Outpatient (CLI) | payer MEDICARE, MEDICAID, SELFPAY ==
[2019-08-09 14:25] LABS: Basophils # 0.1 K/mm3 (0-0.2); Basophils % 0.4 % (0.1-2.0); Eosinophils # 0.1 K/mm3 (0.0-0.4); Eosinophils % 0.9 % (0.1-12.0); Hemoglobin 12.7 g/dL (12.2-16.2); Lymphocytes # 4.1 K/mm3 (0.7-4.5); Mean Corpuscular HGB Conc 32.6 g/dL (31.8-35.4); Mean Corpuscular Hemoglobin 30.7 pg (27.0-31.2); Mean Platelet Volume 8.3 fl (7.4-10.4); Monocytes # 0.6 K/mm3 (0.1-1.0); Monocytes % 5.2 % (1.7-9.3); Neutrophils # 6.9 K/mm3 (1.8-7.8); Neutrophils % 58.5 % (37.0-80.0); Platelet Count 344 K/mm3 (142-424); Red Blood Count 4.14 M/mm3 (4.20-5.40); Red Cell Distribution Width 12.6 % (11.5-17.5); White Blood Count 11.7 K/mm3 (4.8-10.8)
[2019-08-09 16:55] LABS: Alanine Aminotransferase 19 U/L (12-78); Albumin Level 3.3 gm/dL (3.4-5.0); Albumin/Globulin Ratio 1.1 (1.1-1.8); Alkaline Phosphatase 63 U/L (46-116); Anion Gap 10.4 mEq/L (5-15); Aspartate Amino Transferase 8 U/L (15-37); Bilirubin,Total 0.4 mg/dL (0.2-1.0); Blood Urea Nitrogen 9 mg/dL (7-18); Calcium 8.6 mg/dL (8.5-10.1); Carbon Dioxide 31 mmol/L (21.0-32.0); Chloride 103 mmol/L (98-107); Chol/HDL Ratio 1.8 (1-3.5); Cholesterol 142 mg/dL (140-200); Creatinine,Serum 0.67 mg/dL (0.55-1.02); Estimated Glomerular Filt Rate 94 ml/min (>60); Ferritin 39 ng/mL (8-388); Free T4 (Free Thyroxine) 0.82 ng/dl (0.76-1.46); GFR (African American) 114 ML/MIN (>60); Glucose 107 mg/dL (74-106); HDL Cholesterol 78 mg/dL (29-89); LDL Cholesterol 37 mg/dL (0-130); Potassium 3.4 mmoL/L (3.5-5.1); Sodium 141 mmol/L (136-145); Thyroid Stimulating Hormone 1.73 uIU/ml (0.358-3.740); Total Protein,Serum 6.3 gm/dL (6.4-8.2); Triglycerides 136 mg/dL (30-200); VLDL Cholesterol 27 mg/dL (0-40)
[2019-08-11 12:03] LABS: Vitamin D 25 Hydroxy 39.2 ng/mL (30.0-100.0)
== END ==
PROVIDERS: Visit Provider Nurse Practitioner Family
DX: E78.2 Mixed hyperlipidemia (principal); E61.1 Iron deficiency; E55.9 Vitamin D deficiency, unspecified; R53.83 Other fatigue
CPT/HCPCS: 36415; 80053; 80061; 82652; 82728; 84439; 84443; 85025

== ENCOUNTER → 2019-10-03 09:35 | Outpatient (POV) | payer MEDICARE, MEDICAID, SELFPAY ==
[2019-10-03 09:54] VITALS: BP 124/96; PULSE 112; RESP 18; O2SAT 99; BMI 44.4
--- NOTE | 2019-10-03 10:10 | HMH.PAINSOAP ---
[facility] Pain Management SOAP Note Subjective:: Patient is a 49-year-old white female who presents today for medication refills. She is being treated for pain secondary to degenerative disc disease lumbar spine with lumbar radiculopathy symptoms and fibromyalgia. Patient rates her pain a 9 out of 10 today. She is currently on Percocet 10 mg 1 tablet p.o. 4 times daily. She also takes gabapentin 400 mg daily. She denies any side effects to the medications. Her Nicko #[id number] has been reviewed and is appropriate. Her urine drug screens are appropriate. She thinks she has lupus today. Patient says that she has felt bad over the last week. She feels this is why her pain is so bad today. Is continuing with anti-inflammatories and a home stretching program. Review of Systems General: No recent weight changes, no fever, no sleep disturbances Respiratory: No cough, no shortness of air, no recurring pulmonary infections Cardiovascular/peripheral vascular: No chest pain, no palpitations, no edema, no shortness of breath Gastrointestinal: No new onset incontinence, normal bowel movements reported Genitourinary: No new onset incontinence Musculoskeletal: Neck and low back pain Psychiatric: Normal mood/affect Neurological: [Denies weakness in extremities], [denies balance issues] Objective:: Physical exam General: Alert and oriented x3, no acute distress, pleasant and cooperative, [on room air] Lungs: Respirations even and unlabored, symmetrical chest expansion Eyes: PERRL Musculoskeletal: Flexion and extension of lumbar and cervical spine somewhat guarded secondary to pain, deep tendon reflexes normal, strength in upper and lower extremities [5/5], [abnormal gait noted] Neurological: Speech clear, industrial roofer equal, no gross sensory deficit Assessment:: Degenerative disc disease lumbar spine with lumbar radiculopathy symptoms, fibromyalgia Plan:: We will refill the patient's Percocet 10 mg 1 tablet p.o. 4 times daily and gabapentin 400 mg 1 tablet p.o. daily with 15 pills dispensed. We will give HER-2 months worth of medication. She can chart picker her third month in the interim. The patient has been instructed to call the clinic if she has any concerns before her next appointment. Dr. Morales has reviewed this note and agrees with this plan of care. This note was dictated using voice recognition software and make contain errors or omissions. Patient has been prescribed a controlled substance after being counseled on the medication, medication safety, and possible side effects. NICKO report has been obtained and reviewed prior to prescription and found to be appropriate. Opioid contract was reviewed and signed by the patient, and that they have agreed to all of the terms set forth by our compliance program. [facility] History I have reviewed the patient's past medical history: Yes *Have you ever received a pneumonia vaccine?: Yes *Have you received a flu vaccine this season?: Yes - *Social History Smoking Status: Never smoker Alcohol Intake: never Substance Use Type: former substance user *Occupational Status:: other *Travel in the last 8 weeks: None Family Hx:: Non-contributory
== END ==
PROVIDERS: PCP Nurse Practitioner Family; Visit Provider Clinical Nurse Specialist Family Health
DX: M51.16 Intervertebral disc disorders with radiculopathy, lumbar region (principal); M79.7 Fibromyalgia
CPT/HCPCS: 99212

== ENCOUNTER → 2019-11-11 11:09 | Outpatient (CLI) | payer MEDICARE, MEDICAID, SELFPAY ==
[2019-11-15 18:13] LABS: Chlordiazepoxide <0.1 ug/mL (0.1-0.9)
[2019-11-16 15:04] LABS: Acetone Negative % (0.000-0.010); Butalbital <1 ug/mL (1-10); Diazepam <0.1 ug/mL (0.1-0.9); Ethanol Negative % (0.000-0.010); Isopropanol Negative % (0.000-0.010); Pentobarbital <1 ug/mL (1-5)
== END ==
PROVIDERS: Visit Provider Clinical Nurse Specialist Family Health
DX: Z79.899 Other long term (current) drug therapy (principal)
CPT/HCPCS: 36415; 80306; 80356; 80361; G0480

== ENCOUNTER → 2019-11-28 15:23 | Outpatient (POV) | payer MEDICARE, MEDICAID, SELFPAY ==
[2019-11-28 15:37] VITALS: BP 158/86; PULSE 94; RESP 18; O2SAT 99; BMI 43.5
--- NOTE | 2019-11-29 08:56 | HMH.PAINSOAP ---
[facility] Pain Management SOAP Note Subjective:: Patient is a pleasant 49-year-old white female who presents today for medication refills. She is being treated for pain secondary to degenerative disc disease lumbar spine with lumbar radiculopathy symptoms and fibromyalgia. Patient recently had a fall and is having extreme pain down her lower leg. Patient was seen in the ER and given some steroids however they have not been beneficial for her. Patient is still having pain 2 weeks later it is a sharp shooting pain down her left leg. Patient I discussed an updated MRI she would like to move forward with this. Patient is currently on Percocet 10 mg 1 p.o. 4 times a day she denies side effects to her medication. She is also on a compounding cream. Patient's [facility] #[id number] reviewed and appropriate. Urine drug screens have been appropriate. We discussed adding oral gabapentin at this time for her she is interested in pursuing that. ROS General: no recent weight change, no fever, no sleep disturbances Respiratory: no cough, no shortness of air, no recurring pulmonary infections Cardiovascular/Peripheral Vascular: No chest pain, No palpitations, no edema, no shortness of breath. Gastrointestinal: no new onset incontinence, normal bowel movements reported Genitourinary: no new onset incontinence Musculoskeletal: Back pain, leg pain Psychiatric: normal mood/ affect, Neurological: [denies new onset weakness in extremities], [denies new onset balance issues] Objective:: Physical Exam General: Alert and oriented x3, no acute distress, pleasant and cooperative, [on room air] Lungs: Resps E/U, Symmetrical chest expansion Eyes: PERRL Musculoskeletal: Flexion and extension of lumbar spine somewhat guarded secondary to pain, deep tendon reflexes normal, strength in upper and lower extremities [5/5], [abnormal gait noted] Neurological: speech clear, head of product equal, no gross sensory deficits Assessment:: Degenerative disc disease lumbar spine with lumbar radiculopathy, fibromyalgia Plan:: We will prescribe the patient gabapentin 100 mg 1 p.o. nightly for a month see if this is beneficial we will also give her a short-term dose of prednisone 20 mg 1 p.o. twice daily for 5 days we will also order an MRI for the patient. We will also refill her regular medications of Percocet 10 mg 1 p.o. 4 times daily and give her 2 months worth of medication. I will follow-up with her after her MRI reassess her symptoms at that time she has been instructed to call the office if she has any issues prior to the next appointment. Patient has been prescribed a controlled substance after being counseled on the medication, medication safety, and possible side effects. NICKO report has been obtained and reviewed prior to prescription and found to be appropriate. Opioid contract was reviewed and signed by the patient, and that they have agreed to all of the terms set forth by our compliance program. Dr. Morales has reviewed this note and agrees with this plan of care. This note was dictated using voice recognition software and may contain errors or omissions [facility] History I have reviewed the patient's past medical history: Yes Medical History: Denies:: Diabetes Mellitus Type 1, Diabetes Mellitus Type 2 *Have you ever received a pneumonia vaccine?: Yes *Have you received a flu vaccine this season?: Yes Laterality Cases: Bilateral: Tonsillectomy - *Social History Smoking Status: Never smoker Alcohol Intake: never Substance Use Type: former substance user *Occupational Status:: other *Travel in the last 8 weeks: None Family Hx:: Non-contributory
== END ==
PROVIDERS: PCP Nurse Practitioner Family; Visit Provider Clinical Nurse Specialist Family Health
DX: M51.16 Intervertebral disc disorders with radiculopathy, lumbar region (principal); M79.18 Myalgia, other site
CPT/HCPCS: 99212

== ENCOUNTER → 2019-12-02 12:49 | Outpatient (CLI) | payer MEDICARE, MEDICAID, SELFPAY ==
--- NOTE | 2019-12-02 12:52 | MR_ITS ---
PROCEDURE: MR LUMBAR SPINE WO CON CLINICAL INDICATION: BACK PAIN Fall with injury and pain, worsening low back pain with bilateral hip pain radiating down left leg COMPARISON: MR LUMBAR SPINE WO CON from 08/05/2019 TECHNIQUE: Standard multiplanar multiecho sequences are performed without contrast. 3-D MIP and myelographic images are also rendered and reviewed FINDINGS: There is normal alignment. The spinal cord ends at the L1 level. T12-L1: Unremarkable. L1-L2: Mild degenerative disc disease. L2-L3: Unremarkable. L3-L4: Unremarkable. L4-5: Unremarkable. L5-S1: Degenerative disc disease with bulging disc. There is a small left paracentral/foraminal disc herniation impinging upon the left S1 nerve root causing left lateral recess and foraminal narrowing. There is minimal inferior extrusion of the disc herniation. Mild facet ligamentum hypertrophy is present at that level Incidental note is made of heterogeneous increased T1 and T2 signal involving the L1, L3, L4, and L5 vertebral bodies and sacrum consistent with fatty marrow replacement IMPRESSION: Overall no significant change in the small left paracentral and foraminal disc herniation with inferior extrusion at L5-S1 with impingement upon the left S1 nerve root. Dictated by: Mukul Waite MD 12/03/2019 13:24 Electronically signed by Mukul Waite MD in [place] 12/03/2019 13:24
== END ==
PROVIDERS: PCP Nurse Practitioner Family; Visit Provider Clinical Nurse Specialist Family Health
DX: M54.5 Low back pain (principal)
CPT/HCPCS: 72148; 76376

== ENCOUNTER → 2019-12-19 11:44 | Outpatient (POV) | payer MEDICARE, MEDICAID, SELFPAY ==
[2019-12-19 12:11] VITALS: BP 149/83; PULSE 89; RESP 18; O2SAT 99; BMI 42.3
--- NOTE | 2019-12-19 12:26 | P.CONS_ITS ---
[facility] Pain Management SOAP Note Subjective:: Patient is a pleasant 49-year-old white female who presents today to follow-up after her MRI. Patient states that she her pain is a 7 out of 10 she still having difficulty with her left leg. Patient had a fall. Her MRI does show There is a small left paracentral/foraminal disc herniation impinging upon the left S1 nerve root causing left lateral recess and foraminal narrowing. There is minimal inferior extrusion of the disc herniation. Mild facet ligamentum hypertrophy is present at that level per her MRI report. She has an appointment with Dr. Kowalski on January 11. Patient is continuing to take 5 mg of prednisone to help with the pain. Patient is unable to take gabapentin, Lyrica, Elavil, Cymbalta. She is on Percocet which she states is beneficial. Patient and I did discuss a epidural steroid injection but at this time she is unsure if she wants to move forward with that she had a bad experience in [place]. ROS General: no recent weight change, no fever, no sleep disturbances Respiratory: no cough, no shortness of air, no recurring pulmonary infections Cardiovascular/Peripheral Vascular: No chest pain, No palpitations, no edema, no shortness of breath. Gastrointestinal: no new onset incontinence, normal bowel movements reported Genitourinary: no new onset incontinence Musculoskeletal: Back pain, leg pain Psychiatric: normal mood/ affect Neurological: [denies new onset weakness in extremities], [denies new onset balance issues] Objective:: Physical Exam General: Alert and oriented x3, no acute distress, pleasant and cooperative, [on room air] Lungs: Resps E/U, Symmetrical chest expansion, Eyes: PERRL Musculoskeletal: Flexion and extension of lumbar spine somewhat guarded secondary to pain, deep tendon reflexes normal, strength in upper and lower extremities [5/5], [abnormal gait noted] Neurological: 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 Kowalski. I did discuss epidural injections. Patient will think about it. I will follow- up with her after her appointment with Dr. Kowalski. Dr. Morales has reviewed this note and agrees with this plan of care. This note was dictated using voice recognition software and may contain errors or omissions [facility] History I have reviewed the patient's past medical history: Yes Medical History: Denies:: Diabetes Mellitus Type 1, Diabetes Mellitus Type 2 *Have you ever received a pneumonia vaccine?: Yes *Have you received a flu vaccine this season?: Yes Laterality Cases: Bilateral: Tonsillectomy - *Social History Smoking Status: Never smoker Alcohol Intake: never Substance Use Type: former substance user *Occupational Status:: other *Travel in the last 8 weeks: None Family Hx:: Non-contributory
== END ==
PROVIDERS: PCP Nurse Practitioner Family; Visit Provider Clinical Nurse Specialist Family Health
DX: M51.36 Other intervertebral disc degeneration, lumbar region (principal); M51.26 Other intervertebral disc displacement, lumbar region; G54.9 Nerve root and plexus disorder, unspecified
CPT/HCPCS: 99212

== ENCOUNTER → 2020-01-23 10:11 | Outpatient (POV) | payer MEDICARE, MEDICAID, SELFPAY ==
--- NOTE | 2020-01-23 11:26 | HMH.VVPMSO ---
[facility] PM Virtual Visit SOAP Consent for virtual visit:: With the recent concerns about the COVID-19, we are trying to minimize exposure to you by shifting to telehealth appointments whenever possible. It restricts me from seeing you in person, but the trade off is protecting you during this pandemic. Can you see and hear me okay, and do you consent to this option? If not, I would be happy to see if we can reschedule your appointment in the future, when feasible. Has patient consented to this virtual visit?: Yes Subjective:: Patient is a pleasant 49-year-old white female who presents today for follow-up. Patient was seen by Dr. Kowalski on telehealth and was advised to continue physical therapy. Patient states she is overall doing well with this. She rates her pain today a 4 out of 10. Is become more active. She is currently on Percocet 10 mg 1 p.o. 4 times daily and gabapentin overall she is doing well. [facility] #[id number] reviewed and appropriate. ROS General: no recent weight change, no fever, no sleep disturbances Respiratory: no cough, no shortness of air, no recurring pulmonary infections Cardiovascular/Peripheral Vascular: No chest pain, No palpitations, no edema, no shortness of breath. Gastrointestinal: no new onset incontinence, normal bowel movements reported Genitourinary: no new onset incontinence Musculoskeletal: Back pain, leg pain Psychiatric: normal mood/ affect, Neurological: [denies new onset weakness in extremities], [denies new onset balance issues] Objective:: Physical exam: Constitutional: Healthy appearing, well-developed, alert, in no acute distress Psychiatric: Judgment and insight intact, Alert and oriented x4 Mood and affect: Mood normal, affect appropriate Head and face: Inspection: Normocephalic atraumatic, extraocular movement intact Respiratory: Breathing nonlabored, nondyspneic Cardiovascular: No cyanosis, clubbing, or edema observed Skin: Head and neck: Skin with no lesions or rash observed Gait: Able to walk without assistive device: Able to heel and toe walk Neurologic: Sensation grossly intact per patient Musculoskeletal: Patient does have limited range of motion of lumbar spine noted on the video Assessment:: Degenerative disc disease lumbar spine with lumbar radiculopathy Plan:: We will refill the patient's Percocet 10 mg 1 p.o. 4 times daily reassess her symptoms in 2 months. She is been instructed to call the office if she has any issues prior to her next appointment. This encounter was performed as a telemedicine visit via secure 2 way video and audio to minimize risk and transmission of Covid-19. The patient and we understand the limitations of a telemedicine visit including inability to check reflexes, possibly missing subtle findings on physical exam. Alternative options were presented to the patient and the patient elected to proceed with the visit. We specifically discussed risk factors for Covid-19 including age, heart or lung disease, diabetes, immunosuppression and travel. We also discussed that NSAIDs may worsen Covid-19 infection symptoms and that they should not be used to treat Covid-19 symptoms. Patient was also informed that corticosteroids in any form oral or injectable will decrease immune response and may increase risk of Covid-[address] Morales has reviewed this patient's chart and this note and agrees with plan of care. Patient has been instructed to call the office if they have any issues prior to the next appointment. Patient has been prescribed a controlled substance after being counseled on the medication, medication safety, and possible side effects. NICKO report has been obtained and reviewed prior to prescription and found to be appropriate. Opioid contract was reviewed and signed by the patient, and that they have agreed to all of the terms set forth by our compliance program. Time In:: 09:50 Time Out:: 10:05 [facility] History I have reviewed the pa
== END ==
PROVIDERS: Visit Provider Clinical Nurse Specialist Family Health
DX: M51.16 Intervertebral disc disorders with radiculopathy, lumbar region (principal)
CPT/HCPCS: 99212

== ENCOUNTER 2020-02-23 10:00 | Outpatient (RCR) | payer MEDICARE, MEDICAID, SELFPAY ==
--- NOTE | 2020-01-19 15:08 | HMH.PTOPEV ---
PT Outpatient Evaluation Rehab PT Outpatient Evaluation Start: 01/19/20 14:02 Freq: Status: Active Protocol: Document 01/19/20 14:04 TANISHA (Rec: 01/19/20 15:08 TANISHA [id number]) Electronically Signed By Anupam Rodriguez, PT 01/19/20 14:04 Outpatient Therapy Subjective History Subjective History Pt reports insidious onset L sided LBP beginning ~6 months ago. Pt reports severe exacerbation ~1 month d/t fall at home. Pt reports bilateral sided LBP since fall with radicular s/s down to L foot. Recent MRI of lumbar spine has revealed L5-S1 paracentral disc herniation to L. Chief Complaint Pain,Stiff,Paresthesia, Weakness Symptom Type Ache,Sharp,Dull,Shooting Symptoms Relieved By Rest/Positioning,OTC Meds, Prescription Meds Symptoms Aggravated By Standing,Bending/Stooping, Physical Activity,Walking, Lifting Prior Functional Limitations Lifting,Housework,Standing, Walking,Stairs Current Functional Limitations Lifting,Housework,Standing, Walking,Stairs,Bending/ Stooping Symptom Description Constant and Continuous Level of pain today (0-10) 10 Pain scale - at its best (0-10) 10 Pain scale - at its worst (0-10) 10 Lumbopelvic Eval Posture Lumbar Spine Posture Standing Position Increased Lordosis Assistive device Assistive Devices None / NA Gait Observation General Gait Pattern Observation Antalgic Gait Palapation tenderness right thoracic spinal tenderness Yes: 3/4 lumbar spinal tenderness Yes: 3/4 paraspinal tenderness Yes: 3/4 left thoracic spinal tenderness Yes: 3/4 lumbar spinal tenderness Yes: 3/4 paraspinal tenderness Yes: 3/4 buttock tenderness Yes: 3/4 Lumbar/Sacral Palpation Findings Tenderness,Muscle Guarding Accessory Movement T-spine Vertebrae Accessory Movements Central P/A [place]ginson that Elicit Symptoms T10 bilateral T11 bilateral T12 bilateral L-spine Vertebrae Accessory Movements Central P/A [place]inson that Elicit Symptoms L2 bilateral L3 bilateral L4 bilateral L5 bilateral S1 bilateral Range of Motio
== END 2021-02-22 10:05 | disposition home or self-care (01) ==
LOC: PT 10:00
PROVIDERS: PCP Nurse Practitioner Family; Visit Provider Nurse Practitioner Family
DX: M51.16 Intervertebral disc disorders with radiculopathy, lumbar region (principal)
CPT/HCPCS: 97010; 97014; 97033; 97035; 97110; 97140; 97163; G0283

== ENCOUNTER → 2020-10-22 10:42 | Outpatient (POV) | payer MEDICARE, SELFPAY ==
[2020-10-22 11:08] VITALS: BP 128/78; PULSE 85; RESP 18; TEMP 36.8; O2SAT 98; BMI 43.5
--- NOTE | 2020-10-22 12:26 | P.CONS_ITS ---
[facility] Pain Management SOAP Note Subjective:: Patient is a pleasant 50-year-old female who presents today for follow-up. Patient is to be medically managed by her clinic with Percocet and gabapentin. Patient since then has moved to [place] she self discharged from our clinic and received medications from a pain management clinic [place]. She has since had surgery. She has now moved back I discussed with her that we discharged her per her request and at this time we are no longer rating oral narcotic medications. Patient would like to be given the names of some clinics that would write narcotics for her. Patient's [facility] #[id number] her last medication fill was Percocet on 10/02/2020. Patient states that she would receive 28 days worth of medication and return to the clinic every 28 days up [place]. She rates her pain an 8 out of 10 meaning that her pain is not controlled even with her current narcotic regimen. ROS General: no recent weight change, no fever, no sleep disturbances Respiratory: no cough, no shortness of air, no recurring pulmonary infections Cardiovascular/Peripheral Vascular: No chest pain, No palpitations, no edema, no shortness of breath. Gastrointestinal: no new onset incontinence, normal bowel movements reported Genitourinary: no new onset incontinence Musculoskeletal: Back pain, leg pain Psychiatric: normal mood/ affect Neurological: [denies new onset weakness in extremities], [denies new onset balance issues] Objective:: Physical Exam General: Alert and oriented x3, no acute distress, pleasant and cooperative, [on room air] Lungs: Resps E/U, Symmetrical chest expansion, Eyes: PERRL Musculoskeletal: Flexion and extension of lumbar spine somewhat guarded secondary to pain, deep tendon reflexes normal, strength in upper and lower extremities [5/5], [abnormal gait noted] Neurological: 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 Patient is instructed call the office if she has any issues. Dr. Morales has reviewed this note and agrees with this plan of care. This note was dictated using voice recognition software and may contain errors or omissions [facility] History I have reviewed the patient's past medical history: Yes Medical History: Denies:: Diabetes Mellitus Type 1, Diabetes Mellitus Type 2 *Have you ever received a pneumonia vaccine?: Yes *Have you received a flu vaccine this season?: Yes Laterality Cases: Bilateral: Tonsillectomy - *Social History Smoking Status: Never smoker Alcohol Intake: never Substance Use Type: former substance user *Occupational Status:: employed, unemployed *Travel in the last 8 weeks: None Family Hx:: Non-contributory
== END ==
PROVIDERS: PCP Family Medicine; Visit Provider Clinical Nurse Specialist Family Health
DX: M51.16 Intervertebral disc disorders with radiculopathy, lumbar region (principal); M96.1 Postlaminectomy syndrome, not elsewhere classified
CPT/HCPCS: 99212; G0463